=== PATIENT | female | born 1995 | race Caucasian/White ===

== ENCOUNTER 2019-04-13 16:46 | Emergency (ER) | payer OTHER ==
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
[2019-04-13 17:33] LABS: ABS Eosinophils 0.1 10^3/ul (0-0.6); ABS Lymphocytes 2.5 10^3/ul (1.0-4.8); ABS Monocytes 0.5 10^3/ul (0-0.8); Eosinophil % 2.4 %; Hematocrit 40 % (35-47); Hemoglobin 13.4 g/dL (12.0-16.0); Lymphocyte % 40.8 %; Mean Corpuscular HGB Conc 33 g/dL (31-36); Mean Corpuscular Hemoglobin 28 pg (27-31); Mean Corpuscular Volume 82 fL (80-97); Mean Platelet Volume 8.4 fL (7.4-10.4); Platelet Count 275 10^3/uL (150-450); Red Blood Count 4.86 10^6 /uL (3.70-4.87); Red Cell Distribution Width 13 % (10-15); White Blood Count 6.2 10^3/uL (3.5-10.8)
[2019-04-13] MEDS ORDERED: cefTRIAXone VIAL(*) 250 MG VIAL IM ONE (17:41)
[2019-04-13] MEDS ORDERED: Lidocaine 1% MPF ** 5 ML VIAL IM ONE (17:41)
[2019-04-13] MEDS ORDERED: Azithromycin TAB* 250 MG PO ONE (17:41)
[2019-04-13 17:53] LABS: ALT 11 U/L (7-52); AST 16 U/L (13-39); Albumin 4.4 g/dL (3.2-5.2); Albumin/Globulin Ratio 1.5 (1-3); Alkaline Phosphatase 60 U/L (34-104); Anion Gap 7 mmol/L (2-11); BUN/Creatinine Ratio 13.5 (8-20); Blood Urea Nitrogen 10 mg/dL (6-24); CO2 Carbon Dioxide 27 mmol/L (22-32); Calcium 9.7 mg/dL (8.6-10.3); Chloride 107 mmol/L (101-111); EGFR African American 119.9 (>60); EGFR Non-African American 99.1 (>60); Glucose 97 mg/dL (70-100); Potassium 3.8 mmol/L (3.5-5.0); Sodium 141 mmol/L (135-145); Total Protein 7.4 g/dL (6.4-8.9)
[2019-04-13 17:59] LABS: HCG Pregnancy < 0.60 mIU/mL
[2019-04-13 18:36] LABS: Hepatitis B Surface Antigen Nonreactive (Nonreactive)
[2019-04-13 18:40] LABS: HIV 4th Generation Nonreactive (Nonreactive)
[2019-04-13 18:53] LABS: Hepatitis C Antibody Negative (Negative)
[2019-04-13 19:42] LABS: Urine Appearance Cloudy; Urine Bilirubin Negative (Negative); Urine Blood Negative (Negative); Urine Color Yellow; Urine Glucose Negative (Negative); Urine Ketones Negative (Negative); Urine Nitrite Negative (Negative); Urine Protein Negative (Negative); Urine Specific Gravity 1.014 (1.010-1.030); Urine Urobilinogen Negative (Negative)
[2019-04-13 19:54] LABS: Urine Bacteria Absent (Absent); Urine Red Blood Cell Absent (Absent); Urine Squamous Epithelial Cell Present (Absent); Urine White Blood Cell Trace(0-5/hpf) (Absent)
[2019-04-13] MEDS ORDERED: Levonorgestrel 1.5 MG TAB PO ONE (20:05)
[2019-04-13] MEDS ORDERED: Tenofovir/Emtricitab 200/300 * TAB PO ONE ×3 (20:06→22:00)
[2019-04-13] MEDS ORDERED: Raltegravir* 400 MG TAB PO ONE ×3 (20:06→22:00)
[2019-04-13 21:26] VITALS: BP 123/85
== END 2019-04-13 21:25 | disposition home or self-care (01) ==
LOC: ED 16:46
DX: T74.21XA Adult sexual abuse, confirmed, initial encounter (principal)
CPT/HCPCS: 36415; 80053; 80074; 81003; 81015; 84702; 85025; 86780; 87086; 87389; 96372; 99284; A9270-GY; J0696